=== PATIENT | female | born 1945 | race Caucasian/White ===

== ENCOUNTER 2019-12-01 09:30 | Outpatient (RCR) | payer MEDICARE, SELFPAY ==
[2019-11-24 08:10] VITALS: BP 126/59; PULSE 64; RESP 18; TEMP 36.4; BMI 19.7
--- NOTE | 2019-11-24 08:54 | HP.PCM_ITS ---
(1) Nonhealing nonsurgical wound with fat layer exposed Status: Acute Current Visit: Yes Code(s): T14.8XXA - Other injury of unspecified body region, initial encounter (2) Parkinson's disease Status: Acute Current Visit: Yes Code(s): G20 - Parkinson's disease (3) Dementia Status: Acute Current Visit: Yes Qualifiers: Alzheimer's disease onset: early-onset Code(s): F03.90 - Unspecified dementia without behavioral disturbance (4) Generalized joint pain Status: Acute Current Visit: Yes Code(s): M25.50 - Pain in unspecified joint History of Present Illness Date of Service: 11/24/19 Chief Complaint: Follow-up sacral wound from fall. History of Wound: 74-year-old white female with history of dementia and Parkinson's disease fell in May and developed a contusion hematoma on her sacral area more to the right buttocks. Eventually the hematoma opened and family could not take care of so they finally went and saw the doctor in August and he started her on several medications and then now has her on Santyl. The area is not have a lot of depth but has some slough Santyl has been working we will add Adaptic and gauze dressings rather than Band-Aids. She does not ambulate and sits in a wheelchair most of the day sleeps in a recliner because of pain not from the wound but from her joints. Past Medical History Past Medical History: Nonhealing nonsurgical traumatic wound to the sacral area Home Medications: Ambulatory Orders Medication Instructions Recorded Carbidopa-Levo 25-250 mg Odt TID 11/24/19 Lives: With Family Review of Systems Constitutional: Denies: Chills, Fever Eyes: Denies: Blurred vision, Drainage, Pain HEENT: Denies: Difficulty Hearing, Difficulty Swallowing, Sore Throat, Visual Changes Cardiovascular: Denies: Chest Pain, Palpitations, Syncope Respiratory: Denies: Cough, Shortness of Breath Gastrointestinal: Denies: Abdominal Pain, Nausea, Vomiting Genitourinary: Denies: Dysuria, Frequency Musculoskeletal: Denies: Joint Pain, Muscle pain Skin: Reports: Wounds - Sacral area. Denies: Jaundice, Rash Neurological: Denies: Balance problems, Change in Speech, Difficulty swallowing, Focal weakness Psychiatric: Denies: Anxiety, Depression Endocrine: Denies: Change in Body Habitus Hematologic/ Lymphatic: Denies: Adenopathy - Physical Exam Vital Signs Temp Pulse Resp BP 97.6 F L 64 18 126/59 H 11/24/19 08:10 11/24/19 08:10 11/24/19 08:10 11/24/19 08:10 General: Oriented x3, Cooperative, Well developed HEENT: Atraumatic, PERRLA Oral: Moist Mucosa Neck: Supple, No JVD Lungs: Clear to auscultation, Normal air movement Cardiovascular: Regular rate, Regular Rhythm Abdomen: Bowel Sounds Present, Soft, Non Tender, No Hepato-splenomegaly Extremities: No clubbing, No edema Skin: Ulcer/ Wound - Sacral right cheek wound Wound Measurements and Assessment WC - Nurse 1 - General Ulcer Measurement Start: 11/24/19 08:10 Freq: Status: Active Protocol: Activity Type Activity Date Activity User E-Sign Co-Sign Detail Recorded Client Recorded Date Recorded By Document 11/24/19 08:10 PL [id number] 11/24/19 08:19 PL 11/24/19 08:10 Wound Center Nurse 1 [Ulcer Assessment] #1 sacral ulcer -Combined with other wound No -Current Size (cm) - Length 1.2 -Current Size (cm) - Width 1 -Current Size (cm) - Depth 0.1 -Total Square Cm 1.2 -Date of Last Picture (Recall this 11/24/19 field) -Photo Taken Yes -Epithelialization None Present -Tunneling No -Undermining/Tunneling No -Circular Undermining No -Classification - Thickness Full Thickness without Exposed Support Structure -Classification - Pressure Ulcer Stage 2 -Exudate Amt Medium -Exudate Type Serosanguineous -Granulation Amt Large (67-100%) -Granulation Quality [place] -Slough/Fibrin Yes -Necrosis Amt Small (1-33%) -Necrotic Tissue Type Adherent Slough -Texture (Ninoska-wound Skin Appearance) No Abnormality -Moisture (Ninoska-wound Skin Appearance No Abnormality ) -Color (Ninoska-wound Skin Appearance) No Abnormality -Temperature (Ninoska-wound Skin No Abnormality Appearance) (Pt Warm) -Ulcer Cleansing Rinsed/ Irrigated with Saline -Foul Odor after Cleansing No -Anesthetic Used 4% Lidocaine Solution WC - Nurse 2 - General Ulcer CM Notes Start: 11/24/19 08:10 Freq: Status: Active Protocol: Activity Type Activity Date Activity User E-Sign Co-Sign Detail Recorded Client Recorded Date Recorded By Document 11/24/19 08:41 MW [id number] 11/24/19 08:50 MW 11/24/19 08:41 Wound Center Nurse 2 [Procedure/Treatment] -Time 08:47 -Correct Patient Yes -Correct Side, Site, Position Yes -Correct Procedure Yes -Procedure Performed Yes -Type of Procedure Debridement -Clinical Debridement Subcutaneous -Tissue Removed Subcutaneous -Post Debridement (cm) - Length 1.5 -Post Debridement (cm) - Width 1.2 -Post Debridement (cm) - Depth 0.2 -Total Square (Post) (cm) 1.80 -Area of Debridement (cm) - Length 1.5 -Area of Debridement (cm) - Width 1.2 -Total Square (Area) (cm) 1.80 -Tunneling No -Undermining/Tunneling No -Circular Undermining No -Wound/Ulcer Outcome Not Healed -Ulcer Cleansing Rinsed/ Irrigated with Saline -Foul Odor after Cleansing No -Bioengineered Tissue No -Bleeding Controlled with Pressure -Offloading No -Treatment Response Procedure Tolerated Well -Debridement - Open, 1st 20sq cm Yes -Debridement - Subq, 1st 20sq cm No [See Physician Procedure note for Specifics] Pain Scale: 0-10 Numeric [Pain] -Is Patient Pain Free? Yes Musculoskeletal: No Tenderness to Palpation of Joints or Extremities Lymphatic: No Cervical, Supraclavicular, or Inguinal Adenopathy Neurological: Cranial nerves II-XII grossly intact, Neuro grossly intact Psych/Mental Status: Normal Affect, Appropriate Debridement Note Post-Debridement Measurements/Treatment WC - Nurse 2 - General Ulcer CM Notes Start: 11/24/19 08:10 Freq: Status: Active Protocol: Activity Type Activity Date Activity User E-Sign Co-Sign Detail Recorded Client Recorded Date Recorded By Document 11/24/19 08:41 MW [id number] 11/24/19 08:50 MW 11/24/19 08:41 Wound Center Nurse 2 #1 sacral ulcer -Time 08:47 -Correct Patient Yes -Correct Side, Site, Position Yes -Correct Procedure Yes -Procedure Performed Yes -Type of Procedure Debridement -Clinical Debridement Subcutaneous -Tissue Removed Subcutaneous -Post Debridement (cm) - Length 1.5 -Post Debridement (cm) - Width 1.2 -Post Debridement (cm) - Depth 0.2 -Total Square (Post) (cm) 1.80 -Area of Debridement (cm) - Length 1.5 -Area of Debridement (cm) - Width 1.2 -Total Square (Area) (cm) 1.80 -Tunneling No -Undermining/Tunneling No -Circular Undermining No -Wound/Ulcer Outcome Not Healed -Ulcer Cleansing Rinsed/ Irrigated with Saline -Foul Odor after Cleansing No -Bioengineered Tissue No -Bleeding Controlled with Pressure -Offloading No -Treatment Response Procedure Tolerated Well -Debridement - Open, 1st 20sq cm Yes -Debridement - Subq, 1st 20sq cm No Pain Scale: 0-10 Numeric Is Patient Pain Free? Yes Wound debrided: Sacral area Type of Debridement: Excisional debridement Anesthesia Used: 5% Lidocaine Gel Depth: Down to and including healthy tissue, in the subcutaneous layer Percentage of wound debrided: 100 Instrument Used: 5mm curette Tissue Removed: Slough fibrin Severity: Fat Layer Exposed Amount of bleeding with debridement: Mild Bleeding Controlled with: Compression and gauze Patient tolerated procedure well Assessment/Plan Active Problems Nonhealing nonsurgical wound with fat layer exposed (Acute) Parkinson's disease (Acute) Dementia (Acute) Generalized joint pain (Acute) Assessment: Nonhealing nonsurgical traumatic wound to the right sacrum. Parkinson's. Dementia. Generalized joint pain Plan: Wash area with antibacterial soap apply nickel thickness of Santyl cover with Adaptic then gauze. Continue offloading. Increase protein intake multivitamins. Follow-up in 1 week
[2019-12-01 09:14] VITALS: BP 109/35; PULSE 61; RESP 16; TEMP 36.3; BMI 19.7
--- NOTE | 2019-12-01 10:05 | PN.PCM_ITS ---
(1) Nonhealing nonsurgical wound with fat layer exposed Status: Acute Current Visit: Yes Code(s): T14.8XXA - Other injury of unspecified body region, initial encounter (2) Parkinson's disease Status: Acute Current Visit: Yes Code(s): G20 - Parkinson's disease (3) Dementia Status: Acute Current Visit: Yes Qualifiers: Alzheimer's disease onset: early-onset Code(s): F03.90 - Unspecified dementia without behavioral disturbance (4) Generalized joint pain Status: Acute Current Visit: Yes Code(s): M25.50 - Pain in unspecified joint Type of Wound Date of Service: 12/01/19 Chief Complaint: Follow-up sacral wound from fall. History of Wound: 74-year-old white female with history of dementia and Parkinson's disease fell in May and developed a contusion hematoma on her sacral area more to the right buttocks. Eventually the hematoma opened and family could not take care of so they finally went and saw the doctor in August and he started her on several medications and then now has her on Santyl. The area is not have a lot of depth but has some slough Santyl has been working we will add Adaptic and gauze dressings rather than Band-Aids. She does not ambulate and sits in a wheelchair most of the day sleeps in a recliner because of pain not from the wound but from her joints. Progress of Wound: The wound is slightly bigger this week we have been using Santyl for the last 2 weeks. I obtained cultures and will try the Santyl twice a day to the sacral wound. Follow-up in 1 week - Physical Exam Vital Signs Temp Pulse Resp BP 97.4 F L 61 16 109/35 L 12/01/19 09:14 12/01/19 09:14 12/01/19 09:14 12/01/19 09:14 General: Oriented x3, Cooperative, Well developed HEENT: Atraumatic, PERRLA Oral: Moist Mucosa Neck: Supple, No JVD Lungs: Clear to auscultation, Normal air movement Cardiovascular: Regular rate, Regular Rhythm Abdomen: Bowel Sounds Present, Soft, Non Tender, No Hepato-splenomegaly Extremities: No clubbing, No edema Skin: Ulcer/ Wound - Wound sacral area from hematoma nonhealing Wound Measurements and Assessment WC - Nurse 1 - General Ulcer Measurement Start: 11/24/19 08:10 Freq: Status: Active Protocol: Activity Type Activity Date Activity User E-Sign Co-Sign Detail Recorded Client Recorded Date Recorded By Document 12/01/19 09:14 [facility] [id number] 12/01/19 09:22 [facility] 12/01/19 09:14 Wound Center Nurse 1 [Ulcer Assessment] #1 sacral ulcer -Combined with other wound No -Current Size (cm) - Length 1.5 -Current Size (cm) - Width 1.6 -Current Size (cm) - Depth 0.2 -Total Square Cm 2.40 -Photo Taken No -Epithelialization None Present -Tunneling No -Undermining/Tunneling No -Circular Undermining No -Exudate Amt Small -Exudate Type Serous -Wound Margin Distinct, Outline Attached -Granulation Amt Small (1-33%) -Granulation Quality Red -Slough/Fibrin Yes -Necrosis Amt Large (67-100%) -Necrotic Tissue Type Adherent Slough -Texture (Ninoska-wound Skin Appearance) Assessed, Scarring -Moisture (Ninoska-wound Skin Appearance Assessed ) -Color (Ninoska-wound Skin Appearance) Assessed, Erythema -Temperature (Ninoska-wound Skin No Abnormality Appearance) (Pt Warm) -Tenderness on Palpation (Ninoska-wound No Skin Appearance) -Foul Odor after Cleansing No -Anesthetic Used 4% Lidocaine Solution WC - Nurse 2 - General Ulcer CM Notes Start: 11/24/19 08:10 Freq: Status: Active Protocol: Activity Type Activity Date Activity User E-Sign Co-Sign Detail Recorded Client Recorded Date Recorded By Document 12/01/19 09:32 MW [id number] 12/01/19 09:38 MW 12/01/19 09:32 Wound Center Nurse 2 [Procedure/Treatment] -Time 09:32 -Correct Patient Yes -Correct Side, Site, Position Yes -Correct Procedure Yes -Procedure Performed Yes -Type of Procedure Debridement -Clinical Debridement Subcutaneous -Tissue Removed Subcutaneous -Post Debridement (cm) - Length 1.5 -Post Debridement (cm) - Width 1.6 -Post Debridement (cm) - Depth 0.2 -Total Square (Post) (cm) 2.40 -Area of Debridement (cm) - Length 1.5 -Area of Debridement (cm) - Width 1.6 -Total Square (Area) (cm) 2.40 -Tunneling No -Undermining/Tunneling No -Circular Undermining No -Wound/Ulcer Outcome Not Healed -Ulcer Cleansing Rinsed/ Irrigated with Saline -Foul Odor after Cleansing No -Bioengineered Tissue No -Bleeding Controlled with Pressure -Offloading No -Treatment Response Procedure Tolerated Well -Debridement - Subq, 1st 20sq cm Yes [See Physician Procedure note for Specifics] Pain Scale: 0-10 Numeric [Pain] -Is Patient Pain Free? Yes WC - Nurse 3 - General Ulcer D/C NN Start: 11/24/19 08:10 Freq: Status: Active Protocol: Activity Type Activity Date Activity User E-Sign Co-Sign Detail Recorded Client Recorded Date Recorded By Document 12/01/19 09:41 MW [id number] 12/01/19 09:42 MW 12/01/19 09:41 Wound Care Nurse 3 [Wound Dressing] #1 sacral ulcer -Ulcer Cleansing Rinsed/ Irrigated with Saline -Foul Odor after Cleansing No -Negative Pressure Wound Therapy N/A -Primary Dressing Applied NonAdherent Contact Layer -Other Dressing c. hydrogel -Primary Dressing Covered/Secured Dry Gauze, with Secured with Tape [Post Procedure Tolerated] -Treatment Response Procedure Tolerated Well Pain Scale: 0-10 Numeric [Pain] -Is Patient Pain Free? Yes Teaching: Wound Center [Wound Center Education] (Items with an * have Printed Materials Available- Please identify what is given to patient under the Teaching materials given to patient and caregiver Section. Dressing Your Wound -Person Taught Patient,Family -Teaching Method Discussion, Demonstration -Response to teaching Verbalize understanding WC - Visit Discharge [Visit Discharge Information] -Discharge Condition Stable -Ambulatory Status Wheelchair -Transportation Private Auto -Accompanied by -Medication Reconcilliation completed No & provided to patient/care provider -Clinical Summary of Care Provided Yes Musculoskeletal: No Tenderness to Palpation of Joints or Extremities Lymphatic: No Cervical, Supraclavicular, or Inguinal Adenopathy Neurological: Cranial nerves II-XII grossly intact, Neuro grossly intact Psych/Mental Status: Normal Affect, Appropriate Debridement Note Post-Debridement Measurements/Treatment - Nurse 2 - General Ulcer CM Notes Start: 11/24/19 08:10 Freq: Status: Active Protocol: Activity Type Activity Date Activity User E-Sign Co-Sign Detail Recorded Client Recorded Date Recorded By Document 11/24/19 08:41 MW [id number] 11/24/19 08:50 MW Document 12/01/19 09:32 MW [id number] 12/01/19 09:38 MW 11/24/19 12/01/19 08:41 09:32 Wound Center Nurse 2 #1 sacral ulcer -Time 08:47 09:32 -Correct Patient Yes Yes -Correct Side, Site, Position Yes Yes -Correct Procedure Yes Yes -Procedure Performed Yes Yes -Type of Procedure Debridement Debridement -Clinical Debridement Subcutaneous Subcutaneous -Tissue Removed Subcutaneous Subcutaneous -Post Debridement (cm) - Length 1.5 1.5 -Post Debridement (cm) - Width 1.2 1.6 -Post Debridement (cm) - Depth 0.2 0.2 -Total Square (Post) (cm) 1.80 2.40 -Area of Debridement (cm) - Length 1.5 1.5 -Area of Debridement (cm) - Width 1.2 1.6 -Total Square (Area) (cm) 1.80 2.40 -Tunneling No No -Undermining/Tunneling No No -Circular Undermining No No -Wound/Ulcer Outcome Not Healed Not Healed -Ulcer Cleansing Rinsed/ Rinsed/ Irrigated with Irrigated with Saline Saline -Foul Odor after Cleansing No No -Bioengineered Tissue No No -Bleeding Controlled with Pressure Pressure -Offloading No No -Treatment Response Procedure Procedure Tolerated Well Tolerated Well -Debridement - Subq, 1st 20sq cm Yes Yes Pain Scale: 0-10 Numeric Is Patient Pain Free? Yes Yes - Nurse 3 - General Ulcer D/C NN Start: 11/24/19 08:10 Freq: Status: Active Protocol: Activity Type Activity Date Activity User E-Sign Co-Sign Detail Recorded Client Recorded Date Recorded By Document 11/24/19 08:57 MW [id number] 11/24/19 08:58 MW Document 12/01/19 09:41 MW [id number] 12/01/19 09:42 MW 11/24/19 12/01/19 08:57 09:41 Wound Care Nurse 3 #1 sacral ulcer -Ulcer Cleansing Rinsed/ Rinsed/ Irrigated with Irrigated with Saline Saline -Foul Odor after Cleansing No No -Negative Pressure Wound Therapy N/A N/A -Primary Dressing Applied Enzymatic -Primary Dressing Applied NonAdherent Contact Layer -Other Dressing c. hydrogel -Primary Dressing Covered/Secured with Dry Gauze, Dry Gauze, Secured with Secured with Tape Tape Treatment Response Procedure Procedure Tolerated Well Tolerated Well Pain Scale: 0-10 Numeric Is Patient Pain Free? Yes Yes Teaching: Wound Center Dressing Your Wound -Person Taught Patient,Family Patient,Family -Teaching Method Discussion, Discussion, Demonstration Demonstration -Response to teaching Verbalize Verbalize understanding understanding *Welcome to the Wound Center -Person Taught Patient,Family -Teaching Method Discussion -Response to teaching Verbalize understanding WC - Visit Discharge Discharge Condition Stable Stable Ambulatory Status Wheelchair Wheelchair Transportation Private Auto Private Auto Accompanied by daughter Medication Reconcilliation completed & No No provided to patient/care provider Clinical Summary of Care Provided Yes Yes Wound debrided: Sacral wound Type of Debridement: Excisional debridement Anesthesia Used: 5% Lidocaine Gel Depth: Down to and including healthy tissue, in the subcutaneous layer Percentage of wound debrided: 100 Instrument Used: 3mm curette Tissue Removed: Fibrin and slough Severity: Fat Layer Exposed Amount of bleeding with debridement: Mild Bleeding Controlled with: Pressure, Compression and gauze Patient tolerated procedure well Assessment/Plan Aerobic and anaerobic cultures obtained Active Problems Nonhealing nonsurgical wound with fat layer exposed (Acute) Parkinson's disease (Acute) Dementia (Acute) Generalized joint pain (Acute) Assessment: Nonhealing nonsurgical traumatic wound to the right sacrum. Parkinson's. Dementia. Generalized joint pain Plan: Wash area with antibacterial soap apply nickel thickness of Santyl cover with Adaptic then gauze increase to 2 times a day. Continue offloading. Increase protein intake multivitamins. Call with results of the cultures obtained today. Follow-up in 1 week
== END 2019-12-06 23:59 ==
LOC: WC 09:30
PROVIDERS: PCP Family Medicine; Referring Provider Nurse Practitioner; Visit Provider Nurse Practitioner
DX: S30.0XXA Contusion of lower back and pelvis, initial encounter (principal); W19.XXXA Unspecified fall, initial encounter; F02.80 Dementia in other diseases classified elsewhere, unspecified severity, without behavioral disturbance, psychotic disturbance, mood disturbance, and anxiety; G20 Parkinson's disease; G30.0 Alzheimer's disease with early onset; M25.50 Pain in unspecified joint
CPT/HCPCS: 11042; 87070; 87075; 87077; 87186; 87205; 97597; 99203; G0463

== ENCOUNTER 2020-01-05 08:30 | Outpatient (RCR) | payer MEDICARE, SELFPAY ==
[2019-12-07 00:51] VITALS: BP 109/35; PULSE 61; RESP 16; TEMP 36.3
[2019-12-08 09:17] VITALS: RESP 16; TEMP 36.8; BMI 19.7
--- NOTE | 2019-12-08 10:38 | PCM.WC.PN ---
(1) Dementia Status: Acute Current Visit: No Qualifiers: Dementia type: Parkinson's disease Code(s): F03.90 - Unspecified dementia without behavioral disturbance (2) Nonhealing nonsurgical wound with fat layer exposed Status: Acute Current Visit: Yes Code(s): T14.8XXA - Other injury of unspecified body region, initial encounter (3) Parkinson's disease Status: Acute Current Visit: Yes Code(s): G20 - Parkinson's disease Type of Wound Date of Service: 12/08/19 Chief Complaint: Follow-up sacral wound from fall. History of Wound: 74-year-old white female with history of dementia and Parkinson's disease fell in May and developed a contusion hematoma on her sacral area more to the right buttocks. Eventually the hematoma opened and family could not take care of so they finally went and saw the doctor in August and he started her on several medications and then now has her on Santyl. The area is not have a lot of depth but has some slough Santyl has been working we will add Adaptic and gauze dressings rather than Band-Aids. She does not ambulate and sits in a wheelchair most of the day sleeps in a recliner because of pain not from the wound but from her joints. Progress of Wound: The wound is smaller with increasing wound care to twice a day. I obtained cultures she was positive for staph infection and some strep that was rare but we will treat her with doxycycline. And will continue to use Santyl twice a day to the sacral wound. Follow-up in 1 week. - Physical Exam Vital Signs Temp Pulse Resp BP 98.2 F 61 16 109/35 L 12/08/19 09:17 12/07/19 00:51 12/08/19 09:17 12/07/19 00:51 General: Oriented x3, Cooperative, Well developed HEENT: Atraumatic, PERRLA Oral: Moist Mucosa Neck: Supple, No JVD Lungs: Clear to auscultation, Normal air movement Cardiovascular: Regular rate, Regular Rhythm Abdomen: Bowel Sounds Present, Soft, Non Tender, No Hepato-splenomegaly Extremities: No clubbing, No edema Skin: Ulcer/ Wound - Sacral wound Wound Measurements and Assessment WC - Nurse 1 - General Ulcer Measurement Start: 12/08/19 09:17 Freq: Status: Active Protocol: Activity Type Activity Date Activity User E-Sign Co-Sign Detail Recorded Client Recorded Date Recorded By Document 12/08/19 09:17 BM [id number] 12/08/19 09:24 BMF 12/08/19 09:17 Wound Center Nurse 1 [Ulcer Assessment] #1 sacral ulcer -Combined with other wound No -Current Size (cm) - Length 1.1 -Current Size (cm) - Width 1.4 -Current Size (cm) - Depth 0.2 -Total Square Cm 1.54 -Photo Taken No -Tunneling No -Undermining/Tunneling No -Circular Undermining No -Wound Margin Distinct, Outline Attached -Granulation Amt Medium (34-66%) -Granulation Quality Red -Slough/Fibrin Yes -Necrosis Amt Medium (34-66%) -Necrotic Tissue Type Adherent Slough -Texture (Ninoska-wound Skin Appearance) Assessed, Scarring -Moisture (Ninoska-wound Skin Appearance Assessed ) -Color (Ninoska-wound Skin Appearance) Assessed, Erythema -Temperature (Ninoska-wound Skin No Abnormality Appearance) (Pt Warm) -Tenderness on Palpation (Ninoska-wound No Skin Appearance) -Ulcer Cleansing Rinsed/ Irrigated with Saline -Foul Odor after Cleansing No -Anesthetic Used 4% Lidocaine Solution WC - Nurse 2 - General Ulcer CM Notes Start: 12/08/19 09:17 Freq: Status: Active Protocol: Activity Type Activity Date Activity User E-Sign Co-Sign Detail Recorded Client Recorded Date Recorded By Document 12/08/19 09:45 MW [id number] 12/08/19 09:48 MW 12/08/19 09:45 Wound Center Nurse 2 [Procedure/Treatment] -Time 09:46 -Correct Patient Yes -Correct Side, Site, Position Yes -Correct Procedure Yes -Procedure Performed Yes -Type of Procedure Debridement -Clinical Debridement Subcutaneous -Tissue Removed Subcutaneous -Post Debridement (cm) - Length 1.7 -Post Debridement (cm) - Width 1.0 -Post Debridement (cm) - Depth 0.2 -Total Square (Post) (cm) 1.70 -Area of Debridement (cm) - Length 1.7 -Area of Debridement (cm) - Width 1.0 -Total Square (Area) (cm) 1.70 -Tunneling No -Undermining/Tunneling No -Circular Undermining No -Wound/Ulcer Outcome Not Healed -Ulcer Cleansing Rinsed/ Irrigated with Saline -Foul Odor after Cleansing No -Bioengineered Tissue No -Bleeding Controlled with Pressure -Offloading No -Debridement - Subq, 1st 20sq cm Yes [See Physician Procedure note for Specifics] Pain Scale: 0-10 Numeric [Pain] -Is Patient Pain Free? Yes - Nurse 3 - General Ulcer D/C NN Start: 12/08/19 09:17 Freq: Status: Active Protocol: Activity Type Activity Date Activity User E-Sign Co-Sign Detail Recorded Client Recorded Date Recorded By Document 12/08/19 09:48 MW [id number] 12/08/19 09:49 MW 12/08/19 09:48 Wound Care Nurse 3 [Wound Dressing] #1 sacral ulcer -Ulcer Cleansing Rinsed/ Irrigated with Saline -Foul Odor after Cleansing No -Negative Pressure Wound Therapy N/A -Primary Dressing Applied C Hydrogel ($), NonAdherent Contact Layer -Other Dressing c.hydrogel, adaptic -Primary Dressing Covered/Secured Dry Gauze, with Secured with Tape [Post Procedure Tolerated] -Treatment Response Procedure Tolerated Well Pain Scale: 0-10 Numeric [Pain] -Is Patient Pain Free? Yes Teaching: Wound Center [Wound Center Education] (Items with an * have Printed Materials Available- Please identify what is given to patient under the Teaching materials given to patient and caregiver Section. Dressing Your Wound -Person Taught Patient,Family -Teaching Method Discussion, Demonstration -Response to teaching Verbalize understanding - Visit Discharge [Visit Discharge Information] -Discharge Condition Stable -Ambulatory Status Wheelchair -Transportation Private Auto -Accompanied by -Medication Reconcilliation completed No & provided to patient/care provider -Clinical Summary of Care Provided Yes Musculoskeletal: No Tenderness to Palpation of Joints or Extremities Lymphatic: No Cervical, Supraclavicular, or Inguinal Adenopathy Neurological: Cranial nerves II-XII grossly intact, Neuro grossly intact Psych/Mental Status: Normal Affect, Appropriate Debridement Note Post-Debridement Measurements/Treatment WC - Nurse 2 - General Ulcer CM Notes Start: 12/08/19 09:17 Freq: Status: Active Protocol: Activity Type Activity Date Activity User E-Sign Co-Sign Detail Recorded Client Recorded Date Recorded By Document 12/08/19 09:45 MW [id number] 12/08/19 09:48 MW 12/08/19 09:45 Wound Center Nurse 2 #1 sacral ulcer -Time 09:46 -Correct Patient Yes -Correct Side, Site, Position Yes -Correct Procedure Yes -Procedure Performed Yes -Type of Procedure Debridement -Clinical Debridement Subcutaneous -Tissue Removed Subcutaneous -Post Debridement (cm) - Length 1.7 -Post Debridement (cm) - Width 1.0 -Post Debridement (cm) - Depth 0.2 -Total Square (Post) (cm) 1.70 -Area of Debridement (cm) - Length 1.7 -Area of Debridement (cm) - Width 1.0 -Total Square (Area) (cm) 1.70 -Tunneling No -Undermining/Tunneling No -Circular Undermining No -Wound/Ulcer Outcome Not Healed -Ulcer Cleansing Rinsed/ Irrigated with Saline -Foul Odor after Cleansing No -Bioengineered Tissue No -Bleeding Controlled with Pressure -Offloading No -Debridement - Subq, 1st 20sq cm Yes Pain Scale: 0-10 Numeric Is Patient Pain Free? Yes - Nurse 3 - General Ulcer D/C NN Start: 12/08/19 09:17 Freq: Status: Active Protocol: Activity Type Activity Date Activity User E-Sign Co-Sign Detail Recorded Client Recorded Date Recorded By Document 12/08/19 09:48 MW [id number] 12/08/19 09:49 MW 12/08/19 09:48 Wound Care Nurse 3 #1 sacral ulcer -Ulcer Cleansing Rinsed/ Irrigated with Saline -Foul Odor after Cleansing No -Negative Pressure Wound Therapy N/A -Primary Dressing Applied C Hydrogel ($), NonAdherent Contact Layer -Other Dressing c.hydrogel, adaptic -Primary Dressing Covered/Secured with Dry Gauze, Secured with Tape Treatment Response Procedure Tolerated Well Pain Scale: 0-10 Numeric Is Patient Pain Free? Yes Teaching: Wound Center Dressing Your Wound -Person Taught Patient,Family -Teaching Method Discussion, Demonstration -Response to teaching Verbalize understanding WC - Visit Discharge Discharge Condition Stable Ambulatory Status Wheelchair Transportation Private Auto Accompanied by Medication Reconcilliation completed & No provided to patient/care provider Clinical Summary of Care Provided Yes Wound debrided: Sacral wound Type of Debridement: Excisional debridement Anesthesia Used: 5% Lidocaine Gel Depth: Down to and including healthy tissue Instrument Used: 3mm curette Tissue Removed: Slough and fibrin Severity: Limited To Skin Breakdown Amount of bleeding with debridement: Mild Bleeding Controlled with: Pressure, Compression and gauze Patient tolerated procedure well Assessment/Plan Active Problems Nonhealing nonsurgical wound with fat layer exposed (Acute) Parkinson's disease (Acute) Assessment: Nonhealing nonsurgical traumatic wound to the right sacrum. Parkinson's. Dementia. Generalized joint pain Plan: Wash area with antibacterial soap apply nickel thickness of Santyl cover with Adaptic then gauze increase to 2 times a day. Continue offloading. Increase protein intake multivitamins. Start doxycycline 100 mg p.o. twice daily for 10 days. Follow-up in 1 week
[2019-12-15 09:14] VITALS: BP 99/49; PULSE 71; RESP 16; TEMP 35.9; BMI 19.7
--- NOTE | 2019-12-15 11:05 | PN.PCM_ITS ---
(1) Dementia Status: Acute Current Visit: Yes Qualifiers: Dementia type: Parkinson's disease Code(s): F03.90 - Unspecified dementia without behavioral disturbance (2) Nonhealing nonsurgical wound with fat layer exposed Status: Acute Current Visit: Yes Code(s): T14.8XXA - Other injury of unspecified body region, initial encounter (3) Parkinson's disease Status: Acute Current Visit: Yes Code(s): G20 - Parkinson's disease Type of Wound Date of Service: 12/15/19 Chief Complaint: Follow-up sacral wound from fall. History of Wound: 74-year-old white female with history of dementia and Parkinson's disease fell in May and developed a contusion hematoma on her sacral area more to the right buttocks. Eventually the hematoma opened and family could not take care of so they finally went and saw the doctor in August and he started her on several medications and then now has her on Santyl. The area is not have a lot of depth but has some slough Santyl has been working we will add Adaptic and gauze dressings rather than Band-Aids. She does not ambulate and sits in a wheelchair most of the day sleeps in a recliner because of pain not from the wound but from her joints. Progress of Wound: The wound is smaller with increasing wound care to twice a day. I obtained cultures she was positive for staph infection and some strep that was rare but we will treat her with doxycycline. Witching her to Aquacel extra and Adaptic with OPTi foam and follow-up in 1 week - Physical Exam Vital Signs Temp Pulse Resp BP 96.6 F L 71 16 99/49 L 12/15/19 09:14 12/15/19 09:14 12/15/19 09:14 12/15/19 09:14 General: Oriented x3, Cooperative, Well developed HEENT: Atraumatic, PERRLA Oral: Moist Mucosa Neck: Supple, No JVD Lungs: Clear to auscultation, Normal air movement Cardiovascular: Regular rate, Regular Rhythm Abdomen: Bowel Sounds Present, Soft, Non Tender, No Hepato-splenomegaly Extremities: No clubbing, No edema Skin: Ulcer/ Wound Wound Measurements and Assessment WC - Nurse 1 - General Ulcer Measurement Start: 12/08/19 09:17 Freq: Status: Active Protocol: Activity Type Activity Date Activity User E-Sign Co-Sign Detail Recorded Client Recorded Date Recorded By Document 12/15/19 09:14 [facility] [id number] 12/15/19 09:19 [facility] 12/15/19 09:14 Wound Center Nurse 1 [Ulcer Assessment] #1 sacral ulcer -Combined with other wound No -Current Size (cm) - Length 1.1 -Current Size (cm) - Width 1.4 -Current Size (cm) - Depth 0.2 -Total Square Cm 1.54 -Photo Taken No -Epithelialization Small 1-33% -Tunneling No -Undermining/Tunneling No -Circular Undermining No -Exudate Amt Small -Exudate Type Serosanguineous -Wound Margin Distinct, Outline Attached -Granulation Amt Large (67-100%) -Granulation Quality Red -Slough/Fibrin Yes -Necrosis Amt Small (1-33%) -Necrotic Tissue Type Adherent Slough -Texture (Ninoska-wound Skin Appearance) Assessed, Scarring -Moisture (Ninoska-wound Skin Appearance Assessed ) -Color (Ninoska-wound Skin Appearance) Assessed -Temperature (Ninoska-wound Skin No Abnormality Appearance) (Pt Warm) -Tenderness on Palpation (Ninoska-wound No Skin Appearance) -Ulcer Cleansing Rinsed/ Irrigated with Saline -Foul Odor after Cleansing No -Anesthetic Used 5% Lidocaine Gel WC - Nurse 2 - General Ulcer CM Notes Start: 12/08/19 09:17 Freq: Status: Active Protocol: Activity Type Activity Date Activity User E-Sign Co-Sign Detail Recorded Client Recorded Date Recorded By Document 12/15/19 09:29 [id number] 12/15/19 09:32 MW 12/15/19 09:29 Wound Center Nurse 2 [Procedure/Treatment] -Time 09:30 -Correct Patient Yes -Correct Side, Site, Position Yes -Correct Procedure Yes -Procedure Performed Yes -Type of Procedure Debridement -Clinical Debridement Subcutaneous -Tissue Removed Subcutaneous -Post Debridement (cm) - Length 1.2 -Post Debridement (cm) - Width 1.5 -Post Debridement (cm) - Depth 0.2 -Total Square (Post) (cm) 1.80 -Area of Debridement (cm) - Length 1.2 -Area of Debridement (cm) - Width 1.5 -Total Square (Area) (cm) 1.80 -Tunneling No -Undermining/Tunneling No -Circular Undermining No -Wound/Ulcer Outcome Not Healed -Ulcer Cleansing Rinsed/ Irrigated with Saline -Foul Odor after Cleansing No -Bioengineered Tissue No -Bleeding Controlled with Pressure -Offloading No -Debridement - Subq, 1st 20sq cm Yes [See Physician Procedure note for Specifics] Pain Scale: 0-10 Numeric [Pain] -Is Patient Pain Free? Yes - Nurse 3 - General Ulcer D/C NN Start: 12/08/19 09:17 Freq: Status: Active Protocol: Activity Type Activity Date Activity User E-Sign Co-Sign Detail Recorded Client Recorded Date Recorded By Document 12/15/19 09:32 MW [id number] 12/15/19 09:33 MW 12/15/19 09:32 Wound Care Nurse 3 [Wound Dressing] #1 sacral ulcer -Ulcer Cleansing Rinsed/ Irrigated with Saline -Foul Odor after Cleansing No -Negative Pressure Wound Therapy N/A -Primary Dressing Applied Aquacel Extra, Mepilex Border -Primary Dressing Covered/Secured Secured with with Tape -Aquacel Extra 1 -Mepilex Border 1 [Post Procedure Tolerated] -Treatment Response Procedure Tolerated Well Pain Scale: 0-10 Numeric [Pain] -Is Patient Pain Free? Yes Teaching: Wound Center [Wound Center Education] (Items with an * have Printed Materials Available- Please identify what is given to patient under the Teaching materials given to patient and caregiver Section. Dressing Your Wound -Person Taught Patient -Teaching Method Discussion -Response to teaching Verbalize understanding - Visit Discharge [Visit Discharge Information] -Discharge Condition Stable -Ambulatory Status Ambulatory -Transportation Private Auto -Accompanied by -Medication Reconcilliation completed No & provided to patient/care provider -Clinical Summary of Care Provided Yes Musculoskeletal: No Tenderness to Palpation of Joints or Extremities Lymphatic: No Cervical, Supraclavicular, or Inguinal Adenopathy Neurological: Cranial nerves II-XII grossly intact, Neuro grossly intact Psych/Mental Status: Normal Affect, Appropriate Debridement Note Post-Debridement Measurements/Treatment - Nurse 2 - General Ulcer CM Notes Start: 12/08/19 09:17 Freq: Status: Active Protocol: Activity Type Activity Date Activity User E-Sign Co-Sign Detail Recorded Client Recorded Date Recorded By Document 12/08/19 09:45 MW [id number] 12/08/19 09:48 MW Document 12/15/19 09:29 MW [id number] 12/15/19 09:32 MW 12/08/19 12/15/19 09:45 09:29 Wound Center Nurse 2 #1 sacral ulcer -Time 09:46 09:30 -Correct Patient Yes Yes -Correct Side, Site, Position Yes Yes -Correct Procedure Yes Yes -Procedure Performed Yes Yes -Type of Procedure Debridement Debridement -Clinical Debridement Subcutaneous Subcutaneous -Tissue Removed Subcutaneous Subcutaneous -Post Debridement (cm) - Length 1.7 1.2 -Post Debridement (cm) - Width 1.0 1.5 -Post Debridement (cm) - Depth 0.2 0.2 -Total Square (Post) (cm) 1.70 1.80 -Area of Debridement (cm) - Length 1.7 1.2 -Area of Debridement (cm) - Width 1.0 1.5 -Total Square (Area) (cm) 1.70 1.80 -Tunneling No No -Undermining/Tunneling No No -Circular Undermining No No -Wound/Ulcer Outcome Not Healed Not Healed -Ulcer Cleansing Rinsed/ Rinsed/ Irrigated with Irrigated with Saline Saline -Foul Odor after Cleansing No No -Bioengineered Tissue No No -Bleeding Controlled with Pressure Pressure -Offloading No No -Debridement - Subq, 1st 20sq cm Yes Yes Pain Scale: 0-10 Numeric Is Patient Pain Free? Yes Yes - Nurse 3 - General Ulcer D/C NN Start: 12/08/19 09:17 Freq: Status: Active Protocol: Activity Type Activity Date Activity User E-Sign Co-Sign Detail Recorded Client Recorded Date Recorded By Document 12/08/19 09:48 MW [id number] 12/08/19 09:49 MW Document 12/15/19 09:32 MW [id number] 12/15/19 09:33 MW 12/08/19 12/15/19 09:48 09:32 Wound Care Nurse 3 #1 sacral ulcer -Ulcer Cleansing Rinsed/ Rinsed/ Irrigated with Irrigated with Saline Saline -Foul Odor after Cleansing No No -Negative Pressure Wound Therapy N/A N/A -Primary Dressing Applied C Hydrogel ($), Aquacel Extra, NonAdherent Mepilex Border Contact Layer -Other Dressing c.hydrogel, adaptic -Primary Dressing Covered/Secured with Dry Gauze, Secured with Secured with Tape Tape -Aquacel Extra 1 -Mepilex Border 1 Treatment Response Procedure Procedure Tolerated Well Tolerated Well Pain Scale: 0-10 Numeric Is Patient Pain Free? Yes Yes Teaching: Wound Center Dressing Your Wound -Person Taught Patient,Family Patient -Teaching Method Discussion, Discussion Demonstration -Response to teaching Verbalize Verbalize understanding understanding WC - Visit Discharge Discharge Condition Stable Stable Ambulatory Status Wheelchair Ambulatory Transportation Private Auto Private Auto Accompanied by Medication Reconcilliation completed & No No provided to patient/care provider Clinical Summary of Care Provided Yes Yes Wound debrided: Sacral wound Type of Debridement: Excisional debridement Anesthesia Used: 5% Lidocaine Gel Depth: Down to and including healthy tissue, in the subcutaneous layer Percentage of wound debrided: 100 Instrument Used: 3mm curette Tissue Removed: Fibrin and some devitalized tissue Severity: Limited To Skin Breakdown Amount of bleeding with debridement: Mild Bleeding Controlled with: Compression and gauze Patient tolerated procedure well Assessment/Plan Active Problems Nonhealing nonsurgical wound with fat layer exposed (Acute) Parkinson's disease (Acute) Dementia (Acute) Assessment: Nonhealing nonsurgical traumatic wound to the right sacrum. Parkinson's. Dementia. Generalized joint pain Plan: Wash area with antibacterial soap apply. Aquacel extra to wound base moistened cover with Adaptic then gauze every day. Continue offloading. In crease protein intake multivitamins. Follow-up in 1 week
[2019-12-22 09:04] VITALS: BP 116/47; PULSE 70; RESP 18; TEMP 36.1; BMI 19.7
--- NOTE | 2019-12-22 09:28 | PN.PCM_ITS ---
(1) Dementia Status: Acute Current Visit: Yes Qualifiers: Dementia type: Parkinson's disease Code(s): F03.90 - Unspecified dementia without behavioral disturbance (2) Nonhealing nonsurgical wound with fat layer exposed Status: Acute Current Visit: Yes Code(s): T14.8XXA - Other injury of unspecified body region, initial encounter (3) Parkinson's disease Status: Acute Current Visit: Yes Code(s): G20 - Parkinson's disease Type of Wound Date of Service: 12/22/19 Chief Complaint: Follow-up sacral wound from fall. History of Wound: 74-year-old white female with history of dementia and Parkinson's disease fell in May and developed a contusion hematoma on her sacral area more to the right buttocks. Eventually the hematoma opened and family could not take care of so they finally went and saw the doctor in August and he started her on several medications and then now has her on Santyl. The area is not have a lot of depth but has some slough Santyl has been working we will add Adaptic and gauze dressings rather than Band-Aids. She does not ambulate and sits in a wheelchair most of the day sleeps in a recliner because of pain not from the wound but from her joints. Progress of Wound: Switching her to Aquacel extra and Adaptic with OPTi foam has improved the wound it is smaller this week we will continue with same treatments and follow-up in 1 week - Physical Exam Vital Signs Temp Pulse Resp BP 97 F L 70 18 116/47 L 12/22/19 09:04 12/22/19 09:04 12/22/19 09:04 12/22/19 09:04 General: Oriented x3, Cooperative, Well developed HEENT: Atraumatic, PERRLA Oral: Moist Mucosa Neck: Supple, No JVD Lungs: Clear to auscultation, Normal air movement Cardiovascular: Regular rate, Regular Rhythm Abdomen: Bowel Sounds Present, Soft, Non Tender, No Hepato-splenomegaly Extremities: No clubbing, No edema Skin: Ulcer/ Wound - Wound right upper buttocks not from pressure Wound Measurements and Assessment WC - Nurse 1 - General Ulcer Measurement Start: 12/08/19 09:17 Freq: Status: Active Protocol: Activity Type Activity Date Activity User E-Sign Co-Sign Detail Recorded Client Recorded Date Recorded By Document 12/22/19 09:04 RB [id number] 12/22/19 09:06 RB 12/22/19 09:04 Wound Center Nurse 1 [Ulcer Assessment] #1 sacral ulcer -Combined with other wound No -Current Size (cm) - Length 1.2 -Current Size (cm) - Width 1.4 -Current Size (cm) - Depth 0.2 -Total Square Cm 1.68 -Tunneling No -Undermining/Tunneling No -Circular Undermining No -Exudate Amt Small -Exudate Type Serosanguineous -Wound Margin Thickened -Granulation Amt Medium (34-66%) -Granulation Quality [place] -Slough/Fibrin Yes -Necrosis Amt Small (1-33%) -Necrotic Tissue Type Adherent Slough -Structure Exposed N/A -Texture (Ninoska-wound Skin Appearance) Assessed -Moisture (Ninoska-wound Skin Appearance Assessed ) -Color (Ninoska-wound Skin Appearance) Assessed -Temperature (Ninoska-wound Skin No Abnormality Appearance) (Pt Warm) -Tenderness on Palpation (Ninoska-wound No Skin Appearance) -Ulcer Cleansing Wound Cleanser -Foul Odor after Cleansing No -Anesthetic Used 4% Lidocaine Solution WC - Nurse 2 - General Ulcer CM Notes Start: 12/08/19 09:17 Freq: Status: Active Protocol: Activity Type Activity Date Activity User E-Sign Co-Sign Detail Recorded Client Recorded Date Recorded By Document 12/22/19 09:17 MW [id number] 12/22/19 09:19 MW 12/22/19 09:17 Wound Center Nurse 2 [Procedure/Treatment] -Time 09:17 -Correct Patient Yes -Correct Side, Site, Position Yes -Correct Procedure Yes -Procedure Performed Yes -Type of Procedure Debridement -Clinical Debridement Subcutaneous -Tissue Removed Subcutaneous -Post Debridement (cm) - Length 1.0 -Post Debridement (cm) - Width 1.0 -Post Debridement (cm) - Depth 0.2 -Total Square (Post) (cm) 1.00 -Area of Debridement (cm) - Length 1.0 -Area of Debridement (cm) - Width 1.0 -Total Square (Area) (cm) 1.00 -Tunneling No -Undermining/Tunneling No -Circular Undermining No -Wound/Ulcer Outcome Not Healed -Ulcer Cleansing Rinsed/ Irrigated with Saline -Foul Odor after Cleansing No -Bioengineered Tissue No -Bleeding Controlled with Pressure -Offloading No -Debridement - Subq, 1st 20sq cm Yes [See Physician Procedure note for Specifics] Pain Scale: 0-10 Numeric [Pain] -Is Patient Pain Free? Yes - Nurse 3 - General Ulcer D/C NN Start: 12/08/19 09:17 Freq: Status: Active Protocol: Activity Type Activity Date Activity User E-Sign Co-Sign Detail Recorded Client Recorded Date Recorded By Document 12/22/19 09:21 MW [id number] 12/22/19 09:22 MW 12/22/19 09:21 Wound Care Nurse 3 [Wound Dressing] #1 sacral ulcer -Ulcer Cleansing Rinsed/ Irrigated with Saline -Foul Odor after Cleansing No -Negative Pressure Wound Therapy N/A -Primary Dressing Applied Aquacel Extra, Mepilex Border -Aquacel Extra 1 -Mepilex Border 2 [Post Procedure Tolerated] -Treatment Response Procedure Tolerated Well Pain Scale: 0-10 Numeric [Pain] -Is Patient Pain Free? Yes Teaching: Wound Center [Wound Center Education] (Items with an * have Printed Materials Available- Please identify what is given to patient under the Teaching materials given to patient and caregiver Section. Dressing Your Wound -Person Taught Patient,Family -Teaching Method Discussion, Demonstration -Response to teaching Verbalize understanding WC - Visit Discharge [Visit Discharge Information] -Discharge Condition Stable -Ambulatory Status Wheelchair -Transportation Private Auto -Accompanied by -Medication Reconcilliation completed No & provided to patient/care provider -Clinical Summary of Care Provided Yes Musculoskeletal: No Tenderness to Palpation of Joints or Extremities Lymphatic: No Cervical, Supraclavicular, or Inguinal Adenopathy Neurological: Cranial nerves II-XII grossly intact, Neuro grossly intact Psych/Mental Status: Normal Affect, Appropriate Debridement Note Post-Debridement Measurements/Treatment - Nurse 2 - General Ulcer CM Notes Start: 12/08/19 09:17 Freq: Status: Active Protocol: Activity Type Activity Date Activity User E-Sign Co-Sign Detail Recorded Client Recorded Date Recorded By Document 12/08/19 09:45 MW [id number] 12/08/19 09:48 MW Document 12/15/19 09:29 MW [id number] 12/15/19 09:32 MW Document 12/22/19 09:17 MW [id number] 12/22/19 09:19 MW 12/08/19 12/15/1920 09:45 09:29 09:17 Wound Center Nurse 2 #1 sacral ulcer -Time 09:46 09:30 09:17 -Correct Patient Yes Yes Yes -Correct Side, Site, Position Yes Yes Yes -Correct Procedure Yes Yes Yes -Procedure Performed Yes Yes Yes -Type of Procedure Debridement Debridement Debridement -Clinical Debridement Subcutaneous Subcutaneous Subcutaneous -Tissue Removed Subcutaneous Subcutaneous Subcutaneous -Post Debridement (cm) - Length 1.7 1.2 1.0 -Post Debridement (cm) - Width 1.0 1.5 1.0 -Post Debridement (cm) - Depth 0.2 0.2 0.2 -Total Square (Post) (cm) 1.70 1.80 1.00 -Area of Debridement (cm) - Length 1.7 1.2 1.0 -Area of Debridement (cm) - Width 1.0 1.5 1.0 -Total Square (Area) (cm) 1.70 1.80 1.00 -Tunneling No No No -Undermining/Tunneling No No No -Circular Undermining No No No -Wound/Ulcer Outcome Not Healed Not Healed Not Healed -Ulcer Cleansing Rinsed/ Rinsed/ Rinsed/ Irrigated with Irrigated with Irrigated with Saline Saline Saline -Foul Odor after Cleansing No No No -Bioengineered Tissue No No No -Bleeding Controlled with Pressure Pressure Pressure -Offloading No No No -Debridement - Subq, 1st 20sq cm Yes Yes Yes Pain Scale: 0-10 Numeric Is Patient Pain Free? Yes Yes Yes WC - Nurse 3 - General Ulcer D/C NN Start: 12/08/19 09:17 Freq: Status: Active Protocol: Activity Type Activity Date Activity User E-Sign Co-Sign Detail Recorded Client Recorded Date Recorded By Document 12/08/19 09:48 MW [id number] 12/08/19 09:49 MW Document 12/15/19 09:32 MW [id number] 12/15/19 09:33 MW Document 12/22/19 09:21 MW [id number] 12/22/19 09:22 MW 12/08/19 12/15/19 12/22/19 09:48 09:32 09:21 Wound Care Nurse 3 #1 sacral ulcer -Ulcer Cleansing Rinsed/ Rinsed/ Rinsed/ Irrigated with Irrigated with Irrigated with Saline Saline Saline -Foul Odor after Cleansing No No No -Negative Pressure Wound Therapy N/A N/A N/A -Primary Dressing Applied C Hydrogel ($), Aquacel Extra, Aquacel Extra, NonAdherent Mepilex Border Mepilex Border Contact Layer -Other Dressing c.hydrogel, adaptic -Primary Dressing Covered/Secured with Dry Gauze, Secured with Secured with Tape Tape -Aquacel Extra 1 1 -Mepilex Border 1 2 Treatment Response Procedure Procedure Procedure Tolerated Well Tolerated Well Tolerated Well Pain Scale: 0-10 Numeric Is Patient Pain Free? Yes Yes Yes Teaching: Wound Center Dressing Your Wound -Person Taught Patient,Family Patient Patient,Family -Teaching Method Discussion, Discussion Discussion, Demonstration Demonstration -Response to teaching Verbalize Verbalize Verbalize understanding understanding understanding WC - Visit Discharge Discharge Condition Stable Stable Stable Ambulatory Status Wheelchair Ambulatory Wheelchair Transportation Private Auto Private Auto Private Auto Accompanied by Medication Reconcilliation completed & No No No provided to patient/care provider Clinical Summary of Care Provided Yes Yes Yes Wound debrided: Right upper buttocks wound Type of Debridement: Excisional debridement Anesthesia Used: 5% Lidocaine Gel Depth: Down to and including healthy tissue, in the subcutaneous layer Percentage of wound debrided: 100 Instrument Used: 5mm curette Tissue Removed: Fibrin Severity: Limited To Skin Breakdown Amount of bleeding with debridement: Mild Bleeding Controlled with: Compression and gauze Patient tolerated procedure well Assessment/Plan Active Problems Nonhealing nonsurgical wound with fat layer exposed (Acute) Parkinson's disease (Acute) Dementia (Acute) Assessment: Nonhealing nonsurgical traumatic wound to the right sacrum. Parkinson's. Dementia. Generalized joint pain Plan: Wash area with antibacterial soap apply. Aquacel extra to wound base moistened cover with Adaptic then gauze every day. Continue offloading. Increase protein intake multivitamins. Follow-up in 1 week
[2019-12-29 08:45] VITALS: BP 116/46; PULSE 67; RESP 18; TEMP 36; BMI 19.7
--- NOTE | 2019-12-29 09:15 | PCM.WC.PN ---
(1) Dementia Status: Acute Current Visit: Yes Qualifiers: Dementia type: Parkinson's disease Code(s): F03.90 - Unspecified dementia without behavioral disturbance (2) Nonhealing nonsurgical wound with fat layer exposed Status: Acute Current Visit: Yes Code(s): T14.8XXA - Other injury of unspecified body region, initial encounter (3) Parkinson's disease Status: Acute Current Visit: Yes Code(s): G20 - Parkinson's disease Type of Wound Date of Service: 12/29/19 Chief Complaint: Follow-up sacral wound from fall. History of Wound: 74-year-old white female with history of dementia and Parkinson's disease fell in May and developed a contusion hematoma on her sacral area more to the right buttocks. Eventually the hematoma opened and family could not take care of so they finally went and saw the doctor in August and he started her on several medications and then now has her on Santyl. The area is not have a lot of depth but has some slough Santyl has been working we will add Adaptic and gauze dressings rather than Band-Aids. She does not ambulate and sits in a wheelchair most of the day sleeps in a recliner because of pain not from the wound but from her joints. Progress of Wound: Switching her to Aquacel extra and Adaptic with OPTi foam has improved the wound it is smaller this week we will continue with same treatments and follow-up in 1 week - Physical Exam Vital Signs Temp Pulse Resp BP 96.8 F L 67 18 116/46 L 12/29/19 08:45 12/29/19 08:45 12/29/19 08:45 12/29/19 08:45 General: Oriented x3, Cooperative, Well developed HEENT: Atraumatic, PERRLA Oral: Moist Mucosa Neck: Supple, No JVD Lungs: Clear to auscultation, Normal air movement Cardiovascular: Regular rate, Regular Rhythm Abdomen: Bowel Sounds Present, Soft, Non Tender, No Hepato-splenomegaly Extremities: No clubbing, No edema Skin: Ulcer/ Wound - Wound from a blister on right sacrum area Wound Measurements and Assessment WC - Nurse 1 - General Ulcer Measurement Start: 12/08/19 09:17 Freq: Status: Active Protocol: Activity Type Activity Date Activity User E-Sign Co-Sign Detail Recorded Client Recorded Date Recorded By Document 12/29/19 08:45 RB [id number] 12/29/19 08:50 RB 12/29/19 08:45 Wound Center Nurse 1 [Ulcer Assessment] #1 sacral ulcer -Combined with other wound No -Current Size (cm) - Length 0.5 -Current Size (cm) - Width 0.6 -Current Size (cm) - Depth 0.1 -Total Square Cm 0.30 -Tunneling No -Undermining/Tunneling No -Circular Undermining No -Exudate Amt Small -Exudate Type Serosanguineous -Wound Margin Flat & Intact -Granulation Amt Medium (34-66%) -Granulation Quality [place] -Slough/Fibrin Yes -Necrosis Amt Small (1-33%) -Necrotic Tissue Type Adherent Slough -Structure Exposed N/A -Texture (Ninoska-wound Skin Appearance) Assessed, Scarring -Moisture (Ninoska-wound Skin Appearance Assessed ) -Color (Ninoska-wound Skin Appearance) Assessed -Temperature (Ninoska-wound Skin No Abnormality Appearance) (Pt Warm) -Tenderness on Palpation (Ninoska-wound No Skin Appearance) -Ulcer Cleansing Wound Cleanser -Foul Odor after Cleansing No -Anesthetic Used 4% Lidocaine Solution WC - Nurse 2 - General Ulcer CM Notes Start: 12/08/19 09:17 Freq: Status: Active Protocol: Activity Type Activity Date Activity User E-Sign Co-Sign Detail Recorded Client Recorded Date Recorded By Document 12/29/19 09:02 MW [id number] 12/29/19 09:03 MW 12/29/19 09:02 Wound Center Nurse 2 [Procedure/Treatment] -Time 09:02 -Correct Patient Yes -Correct Side, Site, Position Yes -Correct Procedure Yes -Procedure Performed Yes -Type of Procedure Debridement -Clinical Debridement Subcutaneous -Tissue Removed Subcutaneous -Post Debridement (cm) - Length 1.0 -Post Debridement (cm) - Width 0.6 -Post Debridement (cm) - Depth 0.1 -Total Square (Post) (cm) 0.60 -Area of Debridement (cm) - Length 1.0 -Area of Debridement (cm) - Width 0.6 -Total Square (Area) (cm) 0.60 -Tunneling No -Undermining/Tunneling No -Circular Undermining No -Wound/Ulcer Outcome Not Healed -Ulcer Cleansing Rinsed/ Irrigated with Saline -Foul Odor after Cleansing No -Bioengineered Tissue No -Bleeding Controlled with Pressure -Offloading No -Debridement - Subq, 1st 20sq cm Yes [See Physician Procedure note for Specifics] Pain Scale: 0-10 Numeric [Pain] -Is Patient Pain Free? Yes Musculoskeletal: No Tenderness to Palpation of Joints or Extremities Lymphatic: No Cervical, Supraclavicular, or Inguinal Adenopathy Neurological: Cranial nerves II-XII grossly intact, Neuro grossly intact Psych/Mental Status: Normal Affect, Appropriate Debridement Note Post-Debridement Measurements/Treatment WC - Nurse 2 - General Ulcer CM Notes Start: 12/08/19 09:17 Freq: Status: Active Protocol: Activity Type Activity Date Activity User E-Sign Co-Sign Detail Recorded Client Recorded Date Recorded By Document 12/08/19 09:45 MW [id number] 12/08/19 09:48 MW Document 12/15/19 09:29 MW [id number] 12/15/19 09:32 MW Document 12/22/19 09:17 MW [id number] 12/22/19 09:19 MW Document 12/29/19 09:02 MW [id number] 12/29/19 09:03 MW 12/08/19 12/15/19 12/22/19 09:45 09:29 09:17 Wound Center Nurse 2 #1 sacral ulcer -Time 09:46 09:30 09:17 -Correct Patient Yes Yes Yes -Correct Side, Site, Position Yes Yes Yes -Correct Procedure Yes Yes Yes -Procedure Performed Yes Yes Yes -Type of Procedure Debridement Debridement Debridement -Clinical Debridement Subcutaneous Subcutaneous Subcutaneous -Tissue Removed Subcutaneous Subcutaneous Subcutaneous -Post Debridement (cm) - Length 1.7 1.2 1.0 -Post Debridement (cm) - Width 1.0 1.5 1.0 -Post Debridement (cm) - Depth 0.2 0.2 0.2 -Total Square (Post) (cm) 1.70 1.80 1.00 -Area of Debridement (cm) - Length 1.7 1.2 1.0 -Area of Debridement (cm) - Width 1.0 1.5 1.0 -Total Square (Area) (cm) 1.70 1.80 1.00 -Tunneling No No No -Undermining/Tunneling No No No -Circular Undermining No No No -Wound/Ulcer Outcome Not Healed Not Healed Not Healed -Ulcer Cleansing Rinsed/ Rinsed/ Rinsed/ Irrigated with Irrigated with Irrigated with Saline Saline Saline -Foul Odor after Cleansing No No No -Bioengineered Tissue No No No -Bleeding Controlled with Pressure Pressure Pressure -Offloading No No No -Debridement - Subq, 1st 20sq cm Yes Yes Yes Pain Scale: 0-10 Numeric Is Patient Pain Free? Yes Yes Yes 12/29/19 09:02 Wound Center Nurse 2 #1 sacral ulcer -Time 09:02 -Correct Patient Yes -Correct Side, Site, Position Yes -Correct Procedure Yes -Procedure Performed Yes -Type of Procedure Debridement -Clinical Debridement Subcutaneous -Tissue Removed Subcutaneous -Post Debridement (cm) - Length 1.0 -Post Debridement (cm) - Width 0.6 -Post Debridement (cm) - Depth 0.1 -Total Square (Post) (cm) 0.60 -Area of Debridement (cm) - Length 1.0 -Area of Debridement (cm) - Width 0.6 -Total Square (Area) (cm) 0.60 -Tunneling No -Undermining/Tunneling No -Circular Undermining No -Wound/Ulcer Outcome Not Healed -Ulcer Cleansing Rinsed/ Irrigated with Saline -Foul Odor after Cleansing No -Bioengineered Tissue No -Bleeding Controlled with Pressure -Offloading No -Debridement - Subq, 1st 20sq cm Yes Pain Scale: 0-10 Numeric Is Patient Pain Free? Yes - Nurse 3 - General Ulcer D/C NN Start: 12/08/19 09:17 Freq: Status: Active Protocol: Activity Type Activity Date Activity User E-Sign Co-Sign Detail Recorded Client Recorded Date Recorded By Document 12/08/19 09:48 MW [id number] 12/08/19 09:49 MW Document 12/15/19 09:32 MW [id number] 12/15/19 09:33 MW Document 12/22/19 09:21 MW [id number] 12/22/19 09:22 MW 12/08/19 12/15/19 12/22/19 09:48 09:32 09:21 Wound Care Nurse 3 #1 sacral ulcer -Ulcer Cleansing Rinsed/ Rinsed/ Rinsed/ Irrigated with Irrigated with Irrigated with Saline Saline Saline -Foul Odor after Cleansing No No No -Negative Pressure Wound Therapy N/A N/A N/A -Primary Dressing Applied C Hydrogel ($), Aquacel Extra, Aquacel Extra, NonAdherent Mepilex Border Mepilex Border Contact Layer -Other Dressing c.hydrogel, adaptic -Primary Dressing Covered/Secured with Dry Gauze, Secured with Secured with Tape Tape -Aquacel Extra 1 1 -Mepilex Border 1 2 Treatment Response Procedure Procedure Procedure Tolerated Well Tolerated Well Tolerated Well Pain Scale: 0-10 Numeric Is Patient Pain Free? Yes Yes Yes Teaching: Wound Center Dressing Your Wound -Person Taught Patient,Family Patient Patient,Family -Teaching Method Discussion, Discussion Discussion, Demonstration Demonstration -Response to teaching Verbalize Verbalize Verbalize understanding understanding understanding WC - Visit Discharge Discharge Condition Stable Stable Stable Ambulatory Status Wheelchair Ambulatory Wheelchair Transportation Private Auto Private Auto Private Auto Accompanied by Medication Reconcilliation completed & No No No provided to patient/care provider Clinical Summary of Care Provided Yes Yes Yes Wound debrided: Right sacral area Type of Debridement: Excisional debridement Anesthesia Used: 5% Lidocaine Gel Depth: Down to and including healthy tissue Instrument Used: 3mm curette Tissue Removed: Fibrin Severity: Limited To Skin Breakdown Assessment/Plan Active Problems Nonhealing nonsurgical wound with fat layer exposed (Acute) Parkinson's disease (Acute) Dementia (Acute) Assessment: Nonhealing nonsurgical traumatic wound to the right sacrum. Parkinson's. Dementia. Generalized joint pain Plan: Wash area with antibacterial soap apply. Aquacel extra to wound base moistened cover with Adaptic then gauze every day. Continue offloading. Increase protein intake multivitamins. Follow-up in 1 week
[2020-01-05 08:40] VITALS: BP 125/68; PULSE 64; RESP 18; TEMP 36.4; BMI 19.7
--- NOTE | 2020-01-05 08:59 | PCM.WC.PN ---
(1) Dementia Status: Acute Current Visit: Yes Qualifiers: Dementia type: Parkinson's disease Code(s): F03.90 - Unspecified dementia without behavioral disturbance (2) Nonhealing nonsurgical wound with fat layer exposed Status: Acute Current Visit: Yes Code(s): T14.8XXA - Other injury of unspecified body region, initial encounter (3) Parkinson's disease Status: Acute Current Visit: Yes Code(s): G20 - Parkinson's disease Type of Wound Date of Service: 01/05/20 Chief Complaint: Follow-up sacral wound from fall. History of Wound: 74-year-old white female with history of dementia and Parkinson's disease fell in May and developed a contusion hematoma on her sacral area more to the right buttocks. Eventually the hematoma opened and family could not take care of so they finally went and saw the doctor in August and he started her on several medications and then now has her on Santyl. The area is not have a lot of depth but has some slough Santyl has been working we will add Adaptic and gauze dressings rather than Band-Aids. She does not ambulate and sits in a wheelchair most of the day sleeps in a recliner because of pain not from the wound but from her joints. Progress of Wound: Switching her to Promogran and Adaptic with OPTi foam this week to see if we see any more improvement wound has improved and is smaller on Aquacel extra too.Will follow-up in 1 week - Physical Exam Vital Signs Temp Pulse Resp BP 97.5 F L 64 18 125/68 H 01/05/20 08:40 01/05/20 08:40 01/05/20 08:40 01/05/20 08:40 General: Oriented x3, Cooperative, Well developed HEENT: Atraumatic, PERRLA Oral: Moist Mucosa Neck: Supple, No JVD Lungs: Clear to auscultation, Normal air movement Cardiovascular: Regular rate, Regular Rhythm Abdomen: Bowel Sounds Present, Soft, Non Tender, No Hepato-splenomegaly Extremities: No clubbing, No edema Skin: Ulcer/ Wound - Right upper sacral area Wound Measurements and Assessment WC - Nurse 1 - General Ulcer Measurement Start: 12/08/19 09:17 Freq: Status: Active Protocol: Activity Type Activity Date Activity User E-Sign Co-Sign Detail Recorded Client Recorded Date Recorded By Document 01/05/20 08:40 RB [id number] 01/05/20 08:42 RB 01/05/20 08:40 Wound Center Nurse 1 [Ulcer Assessment] #1 sacral ulcer -Combined with other wound No -Current Size (cm) - Length 1 -Current Size (cm) - Width 1.2 -Current Size (cm) - Depth 0.2 -Total Square Cm 1.2 -Tunneling No -Undermining/Tunneling No -Circular Undermining No -Exudate Amt Small -Exudate Type Serosanguineous -Wound Margin Flat & Intact -Granulation Amt Medium (34-66%) -Granulation Quality [place] -Slough/Fibrin Yes -Necrosis Amt Small (1-33%) -Necrotic Tissue Type Adherent Slough -Structure Exposed N/A -Texture (Ninoska-wound Skin Appearance) Assessed, Friable, Scarring -Moisture (Ninoska-wound Skin Appearance Assessed ) -Color (Ninoska-wound Skin Appearance) Assessed -Temperature (Ninoska-wound Skin No Abnormality Appearance) (Pt Warm) -Tenderness on Palpation (Ninoska-wound No Skin Appearance) -Ulcer Cleansing Wound Cleanser -Foul Odor after Cleansing No -Anesthetic Used 5% Lidocaine Gel WC - Nurse 2 - General Ulcer CM Notes Start: 12/08/19 09:17 Freq: Status: Active Protocol: Activity Type Activity Date Activity User E-Sign Co-Sign Detail Recorded Client Recorded Date Recorded By Document 01/05/20 08:50 MW [id number] 01/05/20 08:53 MW 01/05/20 08:50 Wound Center Nurse 2 [Procedure/Treatment] -Time 08:52 -Correct Patient Yes -Correct Side, Site, Position Yes -Correct Procedure Yes -Procedure Performed Yes -Type of Procedure Debridement -Clinical Debridement Subcutaneous -Tissue Removed Subcutaneous -Post Debridement (cm) - Length 1.2 -Post Debridement (cm) - Width 0.5 -Post Debridement (cm) - Depth 0.1 -Total Square (Post) (cm) 0.60 -Area of Debridement (cm) - Length 1.2 -Area of Debridement (cm) - Width 0.5 -Total Square (Area) (cm) 0.60 -Tunneling No -Undermining/Tunneling No -Circular Undermining No -Wound/Ulcer Outcome Not Healed -Ulcer Cleansing Rinsed/ Irrigated with Saline -Foul Odor after Cleansing No -Bioengineered Tissue No -Bleeding Controlled with Pressure -Offloading No -Treatment Response Procedure Tolerated Well -Debridement - Subq, 1st 20sq cm Yes [See Physician Procedure note for Specifics] Pain Scale: 0-10 Numeric [Pain] -Is Patient Pain Free? Yes - Nurse 3 - General Ulcer D/C NN Start: 12/08/19 09:17 Freq: Status: Active Protocol: Activity Type Activity Date Activity User E-Sign Co-Sign Detail Recorded Client Recorded Date Recorded By Document 01/05/20 08:54 MW [id number] 01/05/20 08:55 MW 01/05/20 08:54 Wound Care Nurse 3 [Wound Dressing] #1 sacral ulcer -Ulcer Cleansing Rinsed/ Irrigated with Saline -Foul Odor after Cleansing No -Negative Pressure Wound Therapy N/A -Primary Dressing Applied Mepilex Border, Promogran -Mepilex Border 1 -Promogran 1 Pain Scale: 0-10 Numeric [Pain] -Is Patient Pain Free? Yes Teaching: Wound Center [Wound Center Education] (Items with an * have Printed Materials Available- Please identify what is given to patient under the Teaching materials given to patient and caregiver Section. Dressing Your Wound -Person Taught Patient,Family -Teaching Method Discussion -Response to teaching Verbalize understanding WC - Visit Discharge [Visit Discharge Information] -Discharge Condition Stable -Ambulatory Status Wheelchair -Transportation Private Auto -Accompanied by -Medication Reconcilliation completed No & provided to patient/care provider -Clinical Summary of Care Provided Yes Musculoskeletal: No Tenderness to Palpation of Joints or Extremities Lymphatic: No Cervical, Supraclavicular, or Inguinal Adenopathy Neurological: Cranial nerves II-XII grossly intact, Neuro grossly intact Psych/Mental Status: Normal Affect, Appropriate Debridement Note Post-Debridement Measurements/Treatment WC - Nurse 2 - General Ulcer CM Notes Start: 12/08/19 09:17 Freq: Status: Active Protocol: Activity Type Activity Date Activity User E-Sign Co-Sign Detail Recorded Client Recorded Date Recorded By Document 12/08/19 09:45 MW [id number] 12/08/19 09:48 MW Document 12/15/19 09:29 MW [id number] 12/15/19 09:32 MW Document 12/22/19 09:17 MW [id number] 12/22/19 09:19 MW Document 12/29/19 09:02 MW [id number] 12/29/19 09:03 MW Document 01/05/20 08:50 MW [id number] 01/05/20 08:53 MW 12/08/19 12/15/19 12/22/19 09:45 09:29 09:17 Wound Center Nurse 2 #1 sacral ulcer -Time 09:46 09:30 09:17 -Correct Patient Yes Yes Yes -Correct Side, Site, Position Yes Yes Yes -Correct Procedure Yes Yes Yes -Procedure Performed Yes Yes Yes -Type of Procedure Debridement Debridement Debridement -Clinical Debridement Subcutaneous Subcutaneous Subcutaneous -Tissue Removed Subcutaneous Subcutaneous Subcutaneous -Post Debridement (cm) - Length 1.7 1.2 1.0 -Post Debridement (cm) - Width 1.0 1.5 1.0 -Post Debridement (cm) - Depth 0.2 0.2 0.2 -Total Square (Post) (cm) 1.70 1.80 1.00 -Area of Debridement (cm) - Length 1.7 1.2 1.0 -Area of Debridement (cm) - Width 1.0 1.5 1.0 -Total Square (Area) (cm) 1.70 1.80 1.00 -Tunneling No No No -Undermining/Tunneling No No No -Circular Undermining No No No -Wound/Ulcer Outcome Not Healed Not Healed Not Healed -Ulcer Cleansing Rinsed/ Rinsed/ Rinsed/ Irrigated with Irrigated with Irrigated with Saline Saline Saline -Foul Odor after Cleansing No No No -Bioengineered Tissue No No No -Bleeding Controlled with Pressure Pressure Pressure -Offloading No No No -Treatment Response -Debridement - Subq, 1st 20sq cm Yes Yes Yes Pain Scale: 0-10 Numeric Is Patient Pain Free? Yes Yes Yes 12/29/19 01/05/20 09:02 08:50 Wound Center Nurse 2 #1 sacral ulcer -Time 09:02 08:52 -Correct Patient Yes Yes -Correct Side, Site, Position Yes Yes -Correct Procedure Yes Yes -Procedure Performed Yes Yes -Type of Procedure Debridement Debridement -Clinical Debridement Subcutaneous Subcutaneous -Tissue Removed Subcutaneous Subcutaneous -Post Debridement (cm) - Length 1.0 1.2 -Post Debridement (cm) - Width 0.6 0.5 -Post Debridement (cm) - Depth 0.1 0.1 -Total Square (Post) (cm) 0.60 0.60 -Area of Debridement (cm) - Length 1.0 1.2 -Area of Debridement (cm) - Width 0.6 0.5 -Total Square (Area) (cm) 0.60 0.60 -Tunneling No No -Undermining/Tunneling No No -Circular Undermining No No -Wound/Ulcer Outcome Not Healed Not Healed -Ulcer Cleansing Rinsed/ Rinsed/ Irrigated with Irrigated with Saline Saline -Foul Odor after Cleansing No No -Bioengineered Tissue No No -Bleeding Controlled with Pressure Pressure -Offloading No No -Treatment Response Procedure Tolerated Well -Debridement - Subq, 1st 20sq cm Yes Yes Pain Scale: 0-10 Numeric Is Patient Pain Free? Yes Yes WC - Nurse 3 - General Ulcer D/C NN Start: 12/08/19 09:17 Freq: Status: Active Protocol: Activity Type Activity Date Activity User E-Sign Co-Sign Detail Recorded Client Recorded Date Recorded By Document 12/08/19 09:48 MW [id number] 12/08/19 09:49 MW Document 12/15/19 09:32 MW [id number] 12/15/19 09:33 MW Document 12/22/19 09:21 MW [id number] 12/22/19 09:22 MW Document 12/30/19 09:42 MT [id number] 12/30/19 09:45 MT Document 01/05/20 08:54 MW [id number] 01/05/20 08:55 MW 12/08/19 12/15/19 12/22/19 09:48 09:32 09:21 Wound Care Nurse 3 #1 sacral ulcer -Ulcer Cleansing Rinsed/ Rinsed/ Rinsed/ Irrigated with Irrigated with Irrigated with Saline Saline Saline -Foul Odor after Cleansing No No No -Negative Pressure Wound Therapy N/A N/A N/A -Primary Dressing Applied C Hydrogel ($), Aquacel Extra, Aquacel Extra, NonAdherent Mepilex Border Mepilex Border Contact Layer -Other Dressing c.hydrogel, adaptic -Primary Dressing Covered/Secured with Dry Gauze, Secured with Secured with Tape Tape -Aquacel Extra 1 1 -Aquacel AG 4x4 -Mepilex Border 1 2 -Promogran Treatment Response Procedure Procedure Procedure Tolerated Well Tolerated Well Tolerated Well Pain Scale: 0-10 Numeric Is Patient Pain Free? Yes Yes Yes Teaching: Wound Center Dressing Your Wound -Person Taught Patient,Family Patient Patient,Family -Teaching Method Discussion, Discussion Discussion, Demonstration Demonstration -Response to teaching Verbalize Verbalize Verbalize understanding understanding understanding WC - Visit Discharge Discharge Condition Stable Stable Stable Ambulatory Status Wheelchair Ambulatory Wheelchair Transportation Private Auto Private Auto Private Auto Accompanied by Medication Reconcilliation completed & No No No provided to patient/care provider Clinical Summary of Care Provided Yes Yes Yes 12/30/19 01/05/20 09:42 08:54 Wound Care Nurse 3 #1 sacral ulcer -Ulcer Cleansing Rinsed/ Irrigated with Saline -Foul Odor after Cleansing No -Negative Pressure Wound Therapy N/A -Primary Dressing Applied Aquacel AG 4x4, Mepilex Border, Mepilex Border Promogran -Other Dressing -Primary Dressing Covered/Secured with -Aquacel Extra -Aquacel AG 4x4 1 -Mepilex Border 2 1 -Promogran 1 Treatment Response Pain Scale: 0-10 Numeric Is Patient Pain Free? Yes Teaching: Wound Center Dressing Your Wound -Person Taught Patient,Family -Teaching Method Discussion -Response to teaching Verbalize understanding WC - Visit Discharge Discharge Condition Stable Ambulatory Status Wheelchair Transportation Private Auto Accompanied by Medication Reconcilliation completed & No provided to patient/care provider Clinical Summary of Care Provided Yes Wound debrided: Right upper sacral area Type of Debridement: Excisional debridement Depth: Down to and including healthy tissue, in the subcutaneous layer Percentage of wound debrided: 100 Instrument Used: 5mm curette Tissue Removed: Devitalized tissue and fibrin Severity: Limited To Skin Breakdown Amount of bleeding with debridement: Mild Bleeding Controlled with: Compression and gauze Patient tolerated procedure well Assessment/Plan Active Problems Nonhealing nonsurgical wound with fat layer exposed (Acute) Parkinson's disease (Acute) Dementia (Acute) Assessment: Nonhealing nonsurgical traumatic wound to the right sacrum. Parkinson's. Dementia. Generalized joint pain Plan: Wash area with antibacterial soap. apply Promogran to wound base moistened cover with Adaptic then gauze every day. Continue offloading. Increase protein intake multivitamins. Follow-up in 1 week
== END 2020-01-05 23:59 | disposition home or self-care (01) ==
LOC: WC 08:30
PROVIDERS: PCP Family Medicine; Referring Provider Nurse Practitioner; Visit Provider Nurse Practitioner
DX: T14.8XXA Other injury of unspecified body region, initial encounter (principal); S30.0XXS Contusion of lower back and pelvis, sequela; Y93.9 Activity, unspecified; Y92.9 Unspecified place or not applicable; Y99.9 Unspecified external cause status; M25.50 Pain in unspecified joint; G20 Parkinson's disease; F02.80 Dementia in other diseases classified elsewhere, unspecified severity, without behavioral disturbance, psychotic disturbance, mood disturbance, and anxiety; X19.XXXS Contact with other heat and hot substances, sequela
CPT/HCPCS: 11042

== ENCOUNTER 2020-01-19 08:30 | Outpatient (RCR) | payer MEDICARE, SELFPAY ==
[2020-01-06 00:39] VITALS: BP 125/68; PULSE 64; RESP 18; TEMP 36.4
[2020-01-12 08:13] VITALS: BP 129/60; PULSE 67; RESP 18; TEMP 35.9; BMI 19.7
--- NOTE | 2020-01-12 08:37 | PCM.WC.PN ---
(1) Dementia Status: Acute Current Visit: Yes Code(s): F03.90 - Unspecified dementia without behavioral disturbance (2) Nonhealing nonsurgical wound with fat layer exposed Status: Acute Current Visit: Yes Code(s): T14.8XXA - Other injury of unspecified body region, initial encounter (3) Parkinson's disease Status: Acute Current Visit: Yes Code(s): G20 - Parkinson's disease Type of Wound Date of Service: 01/12/20 Chief Complaint: Follow-up sacral wound from fall. History of Wound: 74-year-old white female with history of dementia and Parkinson's disease fell in May and developed a contusion hematoma on her sacral area more to the right buttocks. Eventually the hematoma opened and family could not take care of so they finally went and saw the doctor in August and he started her on several medications and then now has her on Santyl. The area is not have a lot of depth but has some slough Santyl has been working we will add Adaptic and gauze dressings rather than Band-Aids. She does not ambulate and sits in a wheelchair most of the day sleeps in a recliner because of pain not from the wound but from her joints. Progress of Wound: Switching her to Promogran and Adaptic with OPTi foam this week has helped wound improved tremendously. Will follow-up in 1 week - Physical Exam Vital Signs Temp Pulse Resp BP 96.7 F L 67 18 129/60 H 01/12/20 08:13 01/12/20 08:13 01/12/20 08:13 01/12/20 08:13 General: Oriented x3, Cooperative, Well developed HEENT: Atraumatic, PERRLA Oral: Moist Mucosa Neck: Supple, No JVD Lungs: Clear to auscultation, Normal air movement Cardiovascular: Regular rate, Regular Rhythm Abdomen: Bowel Sounds Present, Soft, Non Tender, No Hepato-splenomegaly Extremities: No clubbing, No edema Skin: Ulcer/ Wound - Upper sacrum wound right upper buttocks Wound Measurements and Assessment WC - Nurse 1 - General Ulcer Measurement Start: 01/12/20 08:13 Freq: Status: Active Protocol: Activity Type Activity Date Activity User E-Sign Co-Sign Detail Recorded Client Recorded Date Recorded By Document 01/12/20 08:13 DL [id number] 01/12/20 08:17 DL 10/07/20 08:13 Wound Center Nurse 1 [Ulcer Assessment] #1 sacral ulcer -Current Size (cm) - Length 0.8 -Current Size (cm) - Width 0.3 -Current Size (cm) - Depth 0.2 -Total Square Cm 0.24 -Photo Taken No -Exudate Amt Small -Exudate Type Serosanguineous -Wound Margin Distinct, Outline Attached -Granulation Amt None Present (0 %) -Necrosis Amt Large (67-100%) -Necrotic Tissue Type Adherent Slough -Structure Exposed N/A -Texture (Ninoska-wound Skin Appearance) Scarring -Moisture (Ninoska-wound Skin Appearance No Abnormality ) -Color (Ninoska-wound Skin Appearance) Rubor -Temperature (Ninoska-wound Skin No Abnormality Appearance) (Pt Warm) -Tenderness on Palpation (Ninoska-wound No Skin Appearance) -Ulcer Cleansing Rinsed/ Irrigated with Saline -Anesthetic Used 5% Lidocaine Gel WC - Nurse 2 - General Ulcer CM Notes Start: 01/12/20 08:13 Freq: Status: Active Protocol: Activity Type Activity Date Activity User E-Sign Co-Sign Detail Recorded Client Recorded Date Recorded By Document 01/12/20 08:30 MW [id number] 01/12/20 08:31 MW 01/12/20 08:30 Wound Center Nurse 2 [Procedure/Treatment] -Time 08:31 -Correct Patient Yes -Correct Side, Site, Position Yes -Correct Procedure Yes -Procedure Performed Yes -Type of Procedure Debridement -Clinical Debridement Subcutaneous -Tissue Removed Subcutaneous -Post Debridement (cm) - Length 0.8 -Post Debridement (cm) - Width 0.3 -Post Debridement (cm) - Depth 0.1 -Total Square (Post) (cm) 0.24 -Area of Debridement (cm) - Length 0.8 -Area of Debridement (cm) - Width 0.3 -Total Square (Area) (cm) 0.24 -Tunneling No -Undermining/Tunneling No -Circular Undermining No -Wound/Ulcer Outcome Not Healed -Ulcer Cleansing Rinsed/ Irrigated with Saline -Foul Odor after Cleansing No -Bioengineered Tissue No -Bleeding Controlled with Pressure -Offloading No -Debridement - Subq, 1st 20sq cm Yes [See Physician Procedure note for Specifics] Pain Scale: 0-10 Numeric [Pain] -Is Patient Pain Free? Yes Musculoskeletal: No Tenderness to Palpation of Joints or Extremities Lymphatic: No Cervical, Supraclavicular, or Inguinal Adenopathy Neurological: Cranial nerves II-XII grossly intact, Neuro grossly intact Psych/Mental Status: Normal Affect, Appropriate Debridement Note Post-Debridement Measurements/Treatment WC - Nurse 2 - General Ulcer CM Notes Start: 01/12/20 08:13 Freq: Status: Active Protocol: Activity Type Activity Date Activity User E-Sign Co-Sign Detail Recorded Client Recorded Date Recorded By Document 01/12/20 08:30 MW [id number] 01/12/20 08:31 MW 01/12/20 08:30 Wound Center Nurse 2 #1 sacral ulcer -Time 08:31 -Correct Patient Yes -Correct Side, Site, Position Yes -Correct Procedure Yes -Procedure Performed Yes -Type of Procedure Debridement -Clinical Debridement Subcutaneous -Tissue Removed Subcutaneous -Post Debridement (cm) - Length 0.8 -Post Debridement (cm) - Width 0.3 -Post Debridement (cm) - Depth 0.1 -Total Square (Post) (cm) 0.24 -Area of Debridement (cm) - Length 0.8 -Area of Debridement (cm) - Width 0.3 -Total Square (Area) (cm) 0.24 -Tunneling No -Undermining/Tunneling No -Circular Undermining No -Wound/Ulcer Outcome Not Healed -Ulcer Cleansing Rinsed/ Irrigated with Saline -Foul Odor after Cleansing No -Bioengineered Tissue No -Bleeding Controlled with Pressure -Offloading No -Debridement - Subq, 1st 20sq cm Yes Pain Scale: 0-10 Numeric Is Patient Pain Free? Yes Wound debrided: Right upper sacral wound Laterality: Right Type of Debridement: Excisional debridement Anesthesia Used: 5% Lidocaine Gel Depth: Down to and including healthy tissue, in the subcutaneous layer Percentage of wound debrided: 100 Instrument Used: 3mm curette Tissue Removed: Slough Severity: Limited To Skin Breakdown Amount of bleeding with debridement: Mild Bleeding Controlled with: Pressure, Compression and gauze Patient tolerated procedure well Assessment/Plan Active Problems Nonhealing nonsurgical wound with fat layer exposed (Acute) Parkinson's disease (Acute) Dementia (Acute) Assessment: Nonhealing nonsurgical traumatic wound to the right sacrum. Parkinson's. Dementia. Generalized joint pain Plan: Wash area with antibacterial soap. apply Promogran to wound base moistened cover with Adaptic then gauze every day. Continue offloading. Increase protein intake multivitamins. Follow-up in 1 week
[2020-01-12 08:41] VITALS: BP 125/64; PULSE 72; RESP 18
[2020-01-19 08:26] VITALS: BP 112/45; PULSE 63; RESP 16; TEMP 36.6; BMI 19.7
--- NOTE | 2020-01-19 08:37 | PCM.WC.PN ---
(1) Dementia Status: Chronic Code(s): F03.90 - Unspecified dementia without behavioral disturbance (2) Nonhealing nonsurgical wound with fat layer exposed Status: Acute Code(s): T14.8XXA - Other injury of unspecified body region, initial encounter (3) Parkinson's disease Status: Chronic Code(s): G20 - Parkinson's disease Type of Wound Date of Service: 01/19/20 Chief Complaint: Follow-up sacral wound from fall. History of Wound: 74-year-old white female with history of dementia and Parkinson's disease fell in May and developed a contusion hematoma on her sacral area more to the right buttocks. Eventually the hematoma opened and family could not take care of so they finally went and saw the doctor in August and he started her on several medications and then now has her on Santyl. The area is not have a lot of depth but has some slough Santyl has been working we will add Adaptic and gauze dressings rather than Band-Aids. She does not ambulate and sits in a wheelchair most of the day sleeps in a recliner because of pain not from the wound but from her joints. Progress of Wound: Wound healed patient will be discharged from the wound center - Physical Exam Vital Signs Temp Pulse Resp BP 97.9 F 63 16 112/45 L 01/19/20 08:26 01/19/20 08:26 01/19/20 08:26 01/19/20 08:26 General: Oriented x3, Cooperative, Well developed HEENT: Atraumatic, PERRLA Oral: Moist Mucosa Neck: Supple, No JVD Lungs: Clear to auscultation, Normal air movement Cardiovascular: Regular rate, Regular Rhythm Abdomen: Bowel Sounds Present, Soft, Non Tender, No Hepato-splenomegaly Extremities: No clubbing, No edema Skin: Ulcer/ Wound - Right upper buttocks wound healed Wound Measurements and Assessment WC - Nurse 1 - General Ulcer Measurement Start: 01/12/20 08:13 Freq: Status: Active Protocol: Activity Type Activity Date Activity User E-Sign Co-Sign Detail Recorded Client Recorded Date Recorded By Document 01/19/20 08:26 [facility] [id number] 01/19/20 08:30 [facility] 01/19/20 08:26 Wound Center Nurse 1 [Ulcer Assessment] #1 sacral ulcer -Combined with other wound No -Current Size (cm) - Length 0 -Current Size (cm) - Width 0 -Current Size (cm) - Depth 0 -Total Square Cm 0 -Date of Last Picture (Recall this 01/19/20 field) -Photo Taken Yes -Epithelialization Large 67-100% -Texture (Ninoska-wound Skin Appearance) Assessed -Moisture (Ninoska-wound Skin Appearance Assessed ) -Color (Ninoska-wound Skin Appearance) Assessed -Temperature (Ninoska-wound Skin No Abnormality Appearance) (Pt Warm) -Tenderness on Palpation (Ninoska-wound No Skin Appearance) -Ulcer Cleansing Rinsed/ Irrigated with Saline -Foul Odor after Cleansing No WC - Nurse 2 - General Ulcer CM Notes Start: 01/12/20 08:13 Freq: Status: Active Protocol: Activity Type Activity Date Activity User E-Sign Co-Sign Detail Recorded Client Recorded Date Recorded By Document 01/19/20 08:35 MW [id number] 01/19/20 08:36 MW 01/19/20 08:35 Wound Center Nurse 2 [Procedure/Treatment] -Time 08:35 -Correct Patient Yes -Correct Side, Site, Position Yes -Correct Procedure Yes -Procedure Performed No -Post Debridement (cm) - Length 0 -Post Debridement (cm) - Width 0 -Post Debridement (cm) - Depth 0 -Total Square (Post) (cm) 0 -Wound/Ulcer Outcome Healed- Epithelialized [See Physician Procedure note for Specifics] Pain Scale: 0-10 Numeric [Pain] -Is Patient Pain Free? Yes Musculoskeletal: No Tenderness to Palpation of Joints or Extremities Lymphatic: No Cervical, Supraclavicular, or Inguinal Adenopathy Neurological: Cranial nerves II-XII grossly intact, Neuro grossly intact Psych/Mental Status: Normal Affect, Appropriate Debridement Note Post-Debridement Measurements/Treatment WC - Nurse 2 - General Ulcer CM Notes Start: 01/12/20 08:13 Freq: Status: Active Protocol: Activity Type Activity Date Activity User E-Sign Co-Sign Detail Recorded Client Recorded Date Recorded By Document 01/12/20 08:30 MW [id number] 01/12/20 08:31 MW Document 01/19/20 08:35 MW [id number] 01/19/20 08:36 MW 01/12/20 01/19/20 08:30 08:35 Wound Center Nurse 2 #1 sacral ulcer -Time 08:31 08:35 -Correct Patient Yes Yes -Correct Side, Site, Position Yes Yes -Correct Procedure Yes Yes -Procedure Performed Yes No -Type of Procedure Debridement -Clinical Debridement Subcutaneous -Tissue Removed Subcutaneous -Post Debridement (cm) - Length 0.8 0 -Post Debridement (cm) - Width 0.3 0 -Post Debridement (cm) - Depth 0.1 0 -Total Square (Post) (cm) 0.24 0 -Area of Debridement (cm) - Length 0.8 -Area of Debridement (cm) - Width 0.3 -Total Square (Area) (cm) 0.24 -Tunneling No -Undermining/Tunneling No -Circular Undermining No -Wound/Ulcer Outcome Not Healed Healed- Epithelialized -Ulcer Cleansing Rinsed/ Irrigated with Saline -Foul Odor after Cleansing No -Bioengineered Tissue No -Bleeding Controlled with Pressure -Offloading No -Debridement - Subq, 1st 20sq cm Yes Pain Scale: 0-10 Numeric Is Patient Pain Free? Yes Yes - Nurse 3 - General Ulcer D/C NN Start: 01/12/20 08:13 Freq: Status: Active Protocol: Activity Type Activity Date Activity User E-Sign Co-Sign Detail Recorded Client Recorded Date Recorded By Document 01/12/20 08:41 RB [id number] 01/12/20 08:42 RB 01/12/20 08:41 Wound Care Nurse 3 #1 sacral ulcer -Ulcer Cleansing Rinsed/ Irrigated with Saline -Primary Dressing Applied Promogran Gertrude Matter -Other Dressing optifoam -Promogran Gertrude Matter 1 Treatment Response Procedure Tolerated Well Vital Signs Pulse Rate (60-100 beats/min) 72 Pulse Location Monitor Respiratory Rate (12-18 breaths/min) 18 Respiratory rate source Observation Blood Pressure (90/60-120/80 mm Hg) 125/64 H Blood Pressure Mean (mm Hg) 84 Source Monitor Position Semi-Fowlers Blood Pressure Location Left Arm Pain Scale: 0-10 Numeric Is Patient Pain Free? Yes Teaching: Wound Center Dressing Your Wound -Person Taught Patient -Teaching Method Discussion, Demonstration -Response to teaching Verbalize understanding WC - Visit Discharge Discharge Condition Stable Ambulatory Status Ambulatory Transportation Private Auto Medication Reconcilliation completed & No provided to patient/care provider Clinical Summary of Care Provided Yes Wound debrided: Upper buttocks No debridement was completed today Assessment/Plan Assessment: Nonhealing nonsurgical traumatic wound to the right sacrum resolved. Parkinson's. Dementia. Generalized joint pain Plan: Continue applying Optifoam pads to the area for the next week. Patient needs to continue offloading. Follow-up as needed discharge from the wound center
== END 2020-02-05 23:59 ==
LOC: WC 08:30
PROVIDERS: PCP Family Medicine; Referring Provider Nurse Practitioner; Visit Provider Nurse Practitioner
DX: T14.8XXA Other injury of unspecified body region, initial encounter (principal); G20 Parkinson's disease; F02.80 Dementia in other diseases classified elsewhere, unspecified severity, without behavioral disturbance, psychotic disturbance, mood disturbance, and anxiety; S30.0XXS Contusion of lower back and pelvis, sequela; Y93.9 Activity, unspecified; X19.XXXS Contact with other heat and hot substances, sequela; Y92.9 Unspecified place or not applicable; M25.50 Pain in unspecified joint; Y99.9 Unspecified external cause status
CPT/HCPCS: 11042; 99213; G0463